=== PATIENT | male | born 1940 | race Caucasian/White ===

== ENCOUNTER 2023-02-02 23:17 | Emergency (ER) | payer BC ==
[2023-02-02 23:46] VITALS: BP 113/54; PULSE 81; RESP 18; TEMP 98.6; BMI 31.6
[2023-02-03] MEDS ORDERED: CIPROFLOXACIN 500 MG TABLET (RESTRICTED TO ID) PO ONE (00:27)
[2023-02-03] MEDS ORDERED: CIPROFLOXACIN 250 MG TABLET (RESTRICTED TO ID) PO ONE (00:32)
[2023-02-03 08:29] LABS: EPITHELIAL CELLS 0-5 /hpf
== END 2023-02-03 00:37 | disposition home or self-care (01) ==
LOC: FER 23:17
PROC: 0T9B70Z Drainage of Bladder with Drainage Device, Via Natural or Artificial Opening (ICD-10-PCS; principal; 2023-02-03)
DX: T83.9XXA Unspecified complication of genitourinary prosthetic device, implant and graft, initial encounter (principal); R32 Unspecified urinary incontinence
CPT/HCPCS: 81003; 81015; 87086; 87186; 99283-25